=== PATIENT | male | born 1955 | race Caucasian/White ===

== ENCOUNTER → 2022-01-03 | Day surgery (SDC) | payer OTHER ==
[~2022-01-03] VITALS: Ht 175.3 cm; Wt 83.9 kg
[~2022-01-03] MED LIST: ALOGLIPTIN25 MG PO; CYANOCOBALAMIN IJ; GLUCOTROL10 MG PO; HCTZ25 MG PO; JARDIANCE25 MG PO; LANTUS **100 UNITS/ SC; LOPRESSOR50 MG PO; METFORMIN HCL500 MG PO; PLENDIL **OUT O5 MG PO; VIBRAMYCIN100 MG PO; ZOCOR40 MG PO
[2022-01-03 06:52] LABS: HCT 46.6 % (42.0-52.0); HGB 15.5 g/dl (13.2-18.0); MCH 29.2 pg (25.0-31.0); MCHC 33.3 g/dL (32.0-36.0); MCV 87.9 fL (78.0-100.0); MPV 10.1 fL (6.0-9.5); RBC 5.3 M/uL (4.70-6.00); WBC 7.4 K/uL (4.0-10.5)
== END | disposition home or self-care (01) ==
LOC: FAS 06:07
PROVIDERS: Legal Medicine
DX: M65.331 Trigger finger, right middle finger (principal); M24.841 Other specific joint derangements of right hand, not elsewhere classified; E11.9 Type 2 diabetes mellitus without complications; I10 Essential (primary) hypertension; G47.30 Sleep apnea, unspecified; Z79.4 Long term (current) use of insulin; Z79.84 Long term (current) use of oral hypoglycemic drugs; Z88.8 Allergy status to other drugs, medicaments and biological substances
CPT/HCPCS: 36415; J0690; J1885; J2250; J2405; J2704; J2795; J3010; J7120